=== PATIENT | female | born 1975 | race Caucasian/White ===

== ENCOUNTER 2024-05-29 10:26 | Outpatient (CLI) | payer OTHER, SELFPAY ==
[2024-05-31 01:02] LABS: HPV Source Cervical; HPV, High Risk by TMA Not Detected
== END 2024-05-29 10:27 | disposition home or self-care (01) ==
PROVIDERS: Visit Provider Obstetrics & Gynecology
DX: N95.1 Menopausal and female climacteric states (principal); R63.5 Abnormal weight gain; Z12.4 Encounter for screening for malignant neoplasm of cervix
CPT/HCPCS: 84443; 87624; 87625; 88141; 88142

== ENCOUNTER 2024-07-11 13:51 | Outpatient (CLI) | payer OTHER, SELFPAY ==
--- NOTE | 2024-07-11 14:00 | CRLHL7_ITS ---
For Patients: As a result of the Century Cures Act, medical imaging exams and procedure reports are released immediately into your electronic medical record. You may view this report before your referring provider. If you have questions, please contact your health care provider. INDICATION: Irregular menstruation. TECHNIQUE: Ultrasound pelvis transabdominal. COMPARISON: MRI 05/08/2021 FINDINGS: Uterus: 10.5 x 6.1 x 6.2 cm. Possible geographic hyperechoic area within the posterior uterine body myometrium measuring 1.7 x 1.4 x 1.8 centimeters. This is not visualized transabdominally and may be artifactual. Endometrium: Transvaginal imaging was performed to better evaluate the endometrium. Endometrial thickness measures 9 mm. No sign of endometrial mass or fluid. Right ovary measures 2.7 x 1.4 x 1.7 cm and left ovary was not visualized. No ovarian or adnexal masses. Cul-de-sac: No significant free fluid. IMPRESSION: 1. Endometrium measures 9 millimeters. No focal endometrial lesion. 2. Possible geographic 1.7 x 1.4 x 1.8 centimeter hyperechoic lesion within the posterior aspect of the uterine body. This was not visualized transabdominally and may be artifactual. Recommend 6-12 week follow-up ultrasound for reassessment. 3. Nonvisualization of the left ovary. Normal sonographic appearance of the right ovary. Dictated by Jeet Mcnally MD @ 07/12/2024 11:31:05 AM (Electronically Signed)
== END 2024-07-11 13:52 | disposition home or self-care (01) ==
LOC: US 13:51
PROVIDERS: Visit Provider Obstetrics & Gynecology
DX: N92.6 Irregular menstruation, unspecified (principal); R93.89 Abnormal findings on diagnostic imaging of other specified body structures
CPT/HCPCS: 76830; 76856